=== PATIENT | male | born 1970 ===

== ENCOUNTER 2021-12-26 21:22 | Emergency (ER) | payer SELFPAY ==
[2021-12-27 07:43] VITALS: BP 112/68
[2021-12-27] MEDS ORDERED: LIDOCAINE (2%) 20 MG/1 ML VIAL 20 ML MDV INFILTRATI STA (08:10)
--- NOTE | 2021-12-27 10:17 | Emergency Department Report ---
Abscess Boil HPI - HPI Chief Complaint: Allergic Reaction Stated Complaint: BITE BY SPIDER Time Seen by Provider: 12/27/21 07:45 Duration: 3 Days Location: Upper Extremity (LEFT FOREARM SPIDER BITE AREA) Severity: Mild History: Yes Pain, Yes Purulent Drainage, Yes Insect Bite, No Numbness, No Foreign Body, No Previous History Home Medications: Previous Rx's Medication Instructions Recorded Last Taken Type Chlorhexidine Gluconate [Hibiclens] 10 ml TP BID #240 liquid 12/27/21 Unknown Rx Ketorolac [Toradol] 10 mg PO Q6H PRN #15 tablet 12/27/21 Unknown Rx Sulfamethoxazole/Trimethoprim 1 each PO BID #20 tablet 12/27/21 Unknown Rx [Bactrim DS TAB] cephALEXin [Keflex] 500 mg PO Q6HR #40 capsule 12/27/21 Unknown Rx Allergies/Adverse Reactions: Allergies Allergy/AdvReac Type Severity Reaction Status Date / Time No Known Allergies Allergy Verified 12/26/21 21:30 ED Review of Systems ROS: Stated complaint: BITE BY SPIDER Other details as noted in HPI Comment: All other systems reviewed and negative ED Past Medical Hx - Social History Smoking Status: Never Smoker Substance Use Type: None - Medications Home Medications: Home Medications Medication Instructions Recorded Confirmed Last Taken Type Chlorhexidine Gluconate [Hibiclens] 10 ml TP BID #240 liquid 12/27/21 Unknown Rx Ketorolac [Toradol] 10 mg PO Q6H PRN #15 tablet 12/27/21 Unknown Rx Sulfamethoxazole/Trimethoprim 1 each PO BID #20 tablet 12/27/21 Unknown Rx [Bactrim DS TAB] cephALEXin [Keflex] 500 mg PO Q6HR #40 capsule 12/27/21 Unknown Rx ED Abscess Boil Physical Exam - Exam General: Vital signs noted. No distress. Alert and acting appropriately. Front/Back of Body, Lg (Color): 1 - ABSCESS AREA. LOCAL CELLULITIS AND PAIN Size: 3 cm Exam: Yes Tenderness, Yes Fluctuance, Yes Surrounding Cellulites/Erythema, Yes Normal Neurologic Exam, Yes Normal Circulation, No Lymphangitis, No Crepitation, No Heart Murmur ED Course Vital Signs 12/26/21 12/27/21 12/27/21 21:30 04:46 07:42 Temperature 98.5 F 98.7 F Pulse Rate 92 H 69 75 Respiratory 18 12 18 Rate Blood Pressure 132/82 Blood Pressure 112/65 [Left] Blood Pressure 112/68 [Right] O2 Sat by Pulse 96 99 99 Oximetry Critical care attestation.: If time is entered above; I have spent that time in minutes in the direct care of this critically ill patient, excluding procedure time. ED Disposition Clinical Impression: Encounter for incision and drainage procedure Disposition: HOME / SELF CARE / HOMELESS Is pt being admited?: No Does the pt Need Aspirin: No Condition: Stable Instructions: Skin Abscess, Hand Washing Prescriptions: Sulfamethoxazole/Trimethoprim [Bactrim DS TAB] 1 each PO BID #20 tablet Chlorhexidine Gluconate [Hibiclens] 10 ml TP BID #240 liquid cephALEXin [Keflex] 500 mg PO Q6HR #40 capsule Ketorolac [Toradol] 10 mg PO Q6H PRN #15 tablet PRN Reason: Pain
== END 2021-12-27 11:44 | disposition home or self-care (01) ==
LOC: ED 21:22
DX: L03.114 Cellulitis of left upper limb (principal); Z48.03 Encounter for change or removal of drains
CPT/HCPCS: 99282; J3490